=== PATIENT | male | born 2000 ===

== ENCOUNTER 2021-08-07 04:47 | Emergency (ER) | payer SELFPAY ==
--- NOTE | 2021-08-07 06:08 | Event Note ---
ED Screening Note ED Screening Note: 20-year-old male escorted to the hospital by his mom presents emergency department after smoking weed yesterday complaining of abdominal pain up and nausea vomiting since yesterday. This initial assessment/diagnostic orders/clinical plan/treatment(s) is/are subject to change based on patients health status, clinical progression and re- assessment by fellow clinical providers in the ED. Further treatment and workup at subsequent clinical providers discretion. Patient/guardian urged not to elope from the ED as their condition may be serious if not clinically assessed and managed. Initial orders include: Abdominal labs and treat accordingly for cannabis hyperemesis syndrome. And rule out other potential cause
[2021-08-07] MEDS ORDERED: ONDANSETRON 4 MG ODT TAB PO STA (06:09)
[2021-08-07] MEDS ORDERED: HYOSCYAMINE SUBL 0.125 MG TAB SL ONE (06:09)
[2021-08-07 06:44] LABS: Hematocrit 50.3 % (35.5-45.6); Hemoglobin 16.2 gm/dl (11.8-15.2); Mean Corpuscular HGB Conc 32 % (32-34); Mean Corpuscular Volume 94 fl (84-94); Platelet Count 281 K/mm3 (140-440); Red Blood Count 5.36 M/mm3 (3.65-5.03); Red Cell Distribution Width 13.3 % (13.2-15.2)
[2021-08-07 06:59] LABS: Alanine Aminotransferase 16 units/L (7-56); Albumin 5.3 g/dL (3.9-5); BUN/Creatinine Ratio 18; Bilirubin,Direct < 0.2 mg/dL (0-0.2); Blood Urea Nitrogen 20 mg/dL (9-20); Calcium 10.5 mg/dL (8.4-10.2); Hemolysis Index 8
[2021-08-07 07:27] LABS: Band Neutrophils # (Manual) 0.3 K/mm3; Eosinophils % (Manual) 0 % (0.0-4.3); Platelet Estimate Consistent w Auto; RBC Morphology Normal; Total Cells Counted 100
[2021-08-07] MEDS ORDERED: METOCLOPRAMIDE 10 MG TAB PO ONE (10:29)
[2021-08-07] MEDS ORDERED: ACETAMINOPHEN 325 MG/10.15 ML ORAL LIQD UNIT DOSE PO ONE (10:29)
--- NOTE | 2021-08-07 10:29 | Emergency Department Report ---
ED General Adult HPI - General Chief complaint: Abdominal Pain Stated complaint: im ok PUI?: No Time Seen by Provider: 08/07/21 10:13 Source: patient, RN notes reviewed Mode of arrival: Ambulatory Limitations: No Limitations - History of Present Illness Initial comments: The patient was evaluated in the emergency department for symptoms described in the history of present illness. He/she was evaluated in the context of the [facility] COVID-19 pandemic, which necessitated consideration that the patient might be at risk for infection with the virus that causes COVID-19. Institutional protocols and algorithms that pertain to the evaluation of patients at risk for COVID-19 are in a state of rapid change based on information released by regulatory bodies including the CDC and federal and state organizations. These policies and algorithms were followed during the patient's care in the emergency department. Please note that these policies, procedures and recommendations changed on a rapid basis. This patient is a pleasant 20-year-old gentleman, with a history of recreational marijuana consumption, who presents to the ER today with a complaint of resolved abdominal cramping. He reports that he has obtained evaluations at other hospitals for similar symptoms. He reports his abdominal cramping which is typically diffuse, and now resolved, typically improves with consumption of marijuana, and exposure to hot water, hot bath and hot shower. He currently denies headache, neck pain, chest pain, abdominal pain, shortness of breath, testicular pain dysuria. He has no complaints at this time. -: Gradual Location: abdomen Severity scale (0 -10): 10 Consistency: intermittent Improves with: other Worsens with: other - Related Data Previous Rx's Medication Instructions Recorded Last Taken Type Acetaminophen [Non-Aspirin Extra 500 mg PO Q6HR PRN #30 tablet 08/07/21 Unknown Rx Strength] Sophia Root [Sophia] 250 mg PO QID PRN #30 capsule 08/07/21 Unknown Rx Metoclopramide [Reglan] 10 mg PO QID PRN #30 tablet 08/07/21 Unknown Rx Promethazine [Phenergan SUPPOS] 50 mg IN Q6H PRN #15 supp 08/07/21 Unknown Rx Allergies Allergy/AdvReac Type Severity Reaction Status Date / Time No Known Allergies Allergy Unverified 08/07/21 06:02 ED Review of Systems ROS: Stated complaint: NAUSEA/FINGER TINGLING/CHILLS Other details as noted in HPI Constitutional: denies: fever Eyes: denies: eye discharge ENT: denies: epistaxis Respiratory: denies: cough Cardiovascular: denies: chest pain Gastrointestinal: abdominal pain Genitourinary: denies: dysuria, testicular pain Neurological: denies: weakness ED Past Medical Hx - Medications Home Medications: Home Medications Medication Instructions Recorded Confirmed Last Taken Type Acetaminophen [Non-Aspirin Extra 500 mg PO Q6HR PRN #30 tablet 08/07/21 Unknown Rx Strength] Sophia Root [Sophia] 250 mg PO QID PRN #30 capsule 08/07/21 Unknown Rx Metoclopramide [Reglan] 10 mg PO QID PRN #30 tablet 08/07/21 Unknown Rx Promethazine [Phenergan SUPPOS] 50 mg IN Q6H PRN #15 supp 08/07/21 Unknown Rx ED Physical Exam - General Limitations: No Limitations General appearance: alert, in no apparent distress - Head Head exam: Present: atraumatic, normocephalic - Eye Eye exam: Present: normal appearance, EOMI. Absent: nystagmus - ENT ENT exam: Present: normal exam, normal orophraynx, mucous membranes moist, normal external ear exam - Neck Neck exam: Present: normal inspection, full ROM. Absent: tenderness, meningismus - Respiratory Respiratory exam: Present: normal lung sounds bilaterally. Absent: respiratory distress, wheezes, rales, rhonchi, stridor, decreased breath sounds - Cardiovascular Cardiovascular Exam: Present: regular rate, normal rhythm, normal heart sounds. Absent: bradycardia, tachycardia, irregular rhythm, systolic murmur, diastolic murmur, rubs, gallop - GI/Abdominal GI/Abdominal exam: Present: soft, normal bowel sounds. Absent: distended, tenderness, guarding, rebound, rigid, pulsatile mass - Rectal Rectal exam: Present: deferred - Extremities Exam Extremities exam: Present: normal inspection, full ROM, other (2+ pulses noted in the bilateral upper and lower extremities. There is no palpable cord. negative Homans sign. Muscular compartments are soft. The pelvis is stable.). Absent: pedal edema, calf tenderness - Back Exam Back exam: Present: normal inspection, full ROM. Absent: tenderness, CVA tenderness (R), CVA tenderness (L), paraspinal tenderness, vertebral tenderness - Neurological Exam Neurological exam: Present: alert, oriented X3, normal gait, other (No facial droop. Tongue midline. Extraocular movements intact bilaterally. Facial sensation intact to light touch in V1, V2, V3 distribution bilaterally. 5 and a 5 strength in 4 extremities. Sensation intact to light touch in 4 extremities.). Absent: motor sensory deficit - Psychiatric Psychiatric exam: Present: normal affect, normal mood - Skin Skin exam: Present: warm, dry, intact, normal color. Absent: rash ED Course Vital Signs 08/07/21 05:52 Temperature 97.9 F Pulse Rate 94 H Respiratory 18 Rate Blood Pressure 117/72 [Right] O2 Sat by Pulse 100 Oximetry ED Medical Decision Making - Lab Data Result diagrams: 08/07/21 06:32 08/07/21 06:32 Vital Signs 08/07/21 05:52 Temperature 97.9 F Pulse Rate 94 H Respiratory 18 Rate Blood Pressure 117/72 [Right] O2 Sat by Pulse 100 Oximetry Lab Results 08/07/21 08/07/21 Range/Units 06:32 06:32 WBC 25.3 H (4.5-11.0) K/mm3 RBC 5.36 H (3.65-5.03) M/mm3 Hgb 16.2 H (11.8-15.2) gm/dl Hct 50.3 H (35.5-45.6) % MCV 94 (84-94) fl MCH 30 (28-32) pg MCHC 32 (32-34) % RDW 13.3 (13.2-15.2) % Plt Count 281 (140-440) K/mm3 Add Manual Diff Complete Total Counted 100 Seg Neuts % (Manual) 89.0 H (40.0-70.0) % Band Neutrophils % 1.0 % Lymphocytes % (Manual) 2.0 L (13.4-35.0) % Reactive Lymphs % (Man) 0 % Monocytes % (Manual) 7.0 (0.0-7.3) % Eosinophils % (Manual) 0 (0.0-4.3) % Basophils % (Manual) 1.0 (0.0-1.8) % Metamyelocytes % 0 % Myelocytes % 0 % Promyelocytes % 0 % Blast Cells % 0 % Nucleated RBC % Not Reportable Seg Neutrophils # Man 22.5 H (1.8-7.7) K/mm3 Band Neutrophils # 0.3 K/mm3 Lymphocytes # (Manual) 0.5 L (1.2-5.4) K/mm3 Abs React Lymphs (Man) 0.0 K/mm3 Monocytes # (Manual) 1.8 H (0.0-0.8) K/mm3 Eosinophils # (Manual) 0.0 (0.0-0.4) K/mm3 Basophils # (Manual) 0.3 H (0.0-0.1) K/mm3 Metamyelocytes # 0.0 K/mm3 Myelocytes # 0.0 K/mm3 Promyelocytes # 0.0 K/mm3 Blast Cells # 0.0 K/mm3 WBC Morphology Not Reportable Hypersegmented Neuts Not Reportable Hyposegmented Neuts Not Reportable Hypogranular Neuts Not Reportable Smudge Cells Not Reportable Toxic Granulation Not Reportable Toxic Vacuolation Not Reportable Dohle Bodies Not Reportable Pelger-Huet Anomaly Not Reportable Macario Rods Not Reportable Platelet Estimate Consistent w auto Clumped Platelets Not Reportable Plt Clumps, EDTA Not Reportable Large Platelets Not Reportable Giant Platelets Not Reportable Platelet Satelliting Not Reportable Plt Morphology Comment Not Reportable RBC Morphology Normal Dimorphic RBCs Not Reportable Polychromasia Not Reportable Hypochromasia Not Reportable Poikilocytosis Not Reportable Anisocytosis Not Reportable Microcytosis Not Reportable Macrocytosis Not Reportable Spherocytes Not Reportable Pappenheimer Bodies Not Reportable Sickle Cells Not Reportable Target Cells Not Reportable Tear Drop Cells Not Reportable Ovalocytes Not Reportable Helmet Cells Not Reportable Parker-[place] Bodies Not Reportable [place] Rings Not Reportable Racine Cells Not Reportable Bite Cells Not Reportable Crenated Cell Not Reportable Elliptocytes Not Reportable Acanthocytes (Spur) Not Reportable Rouleaux Not Reportable Hemoglobin C Crystals Not Reportable Schistocytes Not Reportable Malaria parasites Not Reportable Bryon Bodies Not Reportable Hem Pathologist Commnt No Sodium 143 (137-145) mmol/L Potassium 3.8 (3.6-5.0) mmol/L Chloride 104.5 (98-107) mmol/L Carbon Dioxide 24 (22-30) mmol/L Anion Gap 18 mmol/L BUN 20 (9-20) mg/dL Creatinine 1.1 (0.8-1.3) mg/dL Estimated GFR > 60 ml/min BUN/Creatinine Ratio 18 % Glucose 115 H (75-100) mg/dL Calcium 10.5 H (8.4-10.2) mg/dL Total Bilirubin 0.70 (0.1-1.2) mg/dL Direct Bilirubin < 0.2 (0-0.2) mg/dL Indirect Bilirubin 0.5 mg/dL AST 18 (5-40) units/L ALT 16 (7-56) units/L Alkaline Phosphatase 45 (35-129) units/L Total Protein 8.2 (6.3-8.2) g/dL Albumin 5.3 H (3.9-5) g/dL Albumin/Globulin Ratio 1.8 % Lipase 11 L (13-60) units/L - Medical Decision Making Differential diagnosis, including but not limited to: Cannabinoid hyperemesis syndrome, constipation, GERD, gastritis, hiatal hernia, functional abdominal pain Assessment and plan: 20-year-old gentleman, who is afebrile, with reassuring vital signs, who is in no acute distress, with a soft benign abdomen, without rebound, guarding or peritoneal signs, who is currently on a cellular phone when I walked into the room to examine him, most likely has cannabinoid hyperemesis syndrome. Patient educated as to the natural history of cannabinoid hyperemesis syndrome. Labs were sent prior to my personal evaluation of this patient, leukocytosis is likely a stress reaction, given lack of abdominal pain, tenderness, or pertinent physical exam findings at this time, would not pursue advanced imaging. The patient is clinically sober at this time, and in no acute distress, without active vomiting. Discontinue marijuana consumption, as needed Reglan, sophia, Phenergan suppository, [id number] Tylenol, may also take hot bath/hot shower, and use hot sauce liberally when applied to the anterior abdominal wall as needed for physical pain improvement. Return precautions reviewed Critical care attestation.: If time is entered above; I have spent that time in minutes in the direct care of this critically ill patient, excluding procedure time. ED Disposition Clinical Impression: History of abdominal pain, History of marijuana use Disposition: HOME / SELF CARE / HOMELESS Is pt being admited?: No Does the pt Need Aspirin: No Condition: Good Additional Instructions: As we discussed, we suspect that the patient has cannabinoid hyperemesis syndrome. Treatment is to discontinue marijuana consumption. Symptoms may persist for 4 to 6 weeks. Patient may take the prescribed nausea medications as needed and directed, in addition to taking a hot bath/hot shower as often as as needed for pain and symptom improvement, patient may also purchase hot sauce, brands not important, and apply liberally to the anterior abdominal wall as needed for symptom relief and supportive relief. We recommend that patient avoid consumption of Motrin, ibuprofen, Naprosyn, Aleve, alcohol, marijuana, and smoke products. We recommend follow-up with a primary care doctor or lobsterman within t he next 2 to 4 weeks. Please return to the emergency room right away with new pain, worsened pain, m igration of pain, projectile vomiting, change in mental status, confusion, inability tolerate liquid feeds, new, worsened or different symptoms not present on the initial emergency room evaluation Patient may take the Reglan and sophia tablets as needed for nausea and vomiting. Use the Phenergan suppositories as needed for intractable nausea and vomiting not relieved by the aforementioned medications. Referrals: [facility] [Provider Group] - 3-5 Days [facility] [Provider Group] - 3-5 Days Forms: Work/School Release Form(ED)
[2021-08-07 11:56] VITALS: BP 123/77
== END 2021-08-07 11:56 | disposition home or self-care (01) ==
LOC: ED 04:47
DX: R10.84 Generalized abdominal pain (principal); F12.90 Cannabis use, unspecified, uncomplicated; Z79.899 Other long term (current) drug therapy
CPT/HCPCS: 36415; 80048; 80076; 83690; 85007; 85025; 99283